=== PATIENT | male | born 1965 | race Caucasian/White ===

== ENCOUNTER 2017-10-15 15:01 | Emergency (ER) | payer OTHER ==
--- NOTE | 2017-10-15 16:28 | UC ---
Skin Complaint HPI - HPI Summary HPI Summary: 51-year-old male presents with onset of myalgias especially to bilateral shoulders and right hip, fatigue, night sweats one week ago. States about 3 days later developed circular rash to his abdomen and has since developed 2 more on his back and right arm. No known tick bite however states he had a tick bite about 1 year ago with similar symptoms and was treated with 2 weeks of doxycycline. - History of Current Complaint Chief Complaint: UCRash Time Seen by Provider: 10/15/17 16:12 Stated Complaint: SKIN COMPLAINT Hx Obtained From: Patient Onset/Duration: Gradual Onset, Lasting Days Pain Intensity: 0 Aggravating Factor(s): Nothing Alleviating Factor(s): Nothing - Allergy/Home Medications Allergies/Adverse Reactions: Allergies Allergy/AdvReac Type Severity Reaction Status Date / Time No Known Allergies Allergy Verified 10/15/17 15:39 Review of Systems Constitutional: Fatigue, Other - Night sweats Skin: Rash Respiratory: Negative Cardiovascular: Negative Gastrointestinal: Negative Musculoskeletal: Arthralgia Is Patient Immunocompromised?: No All Other Systems Reviewed And Are Negative: Yes PMH/Surg Hx/FS Hx/Imm Hx - Additional Past Medical History Additional PMH: Denies significant PMH - Surgical History Surgical History: Yes Surgery Procedure, Year, and Place: right knee patella - Family History Family History: Noncontributory - Social History Occupation: Employed Full-time Lives: With Family Alcohol Use: Daily Alcohol Amount: 2 drinks Substance Use Type: None Smoking Status (MU): Heavy Every Day Tobacco Smoker Physical Exam Triage Information Reviewed: Yes Appearance: Well-Appearing, No Pain Distress, Well-Nourished Vital Signs: Initial Vital Signs Temp 98.4 F 10/15/17 15:33 Pulse 72 10/15/17 15:33 Resp 18 10/15/17 15:33 BP 153/100 10/15/17 15:33 Pulse Ox 100 10/15/17 15:33 Eyes: Positive: Conjunctiva Clear. Negative: Discharge Neck: Positive: Supple, Nontender, No Lymphadenopathy Respiratory: Positive: Lungs clear, Normal breath sounds, No respiratory distress Cardiovascular: Positive: RRR, No Murmur Neurological: Positive: Alert Skin: Positive: Other - Circular non-pruritic erythematous rash 6 cm in diameter with dark red center to RU abdomen. Oval non-pruritic rash approximately 4 cm left posterior shoulder. Small non-pruritic 2.3 cm rash to right forearm. Course/Dx - Course Course Of Treatment: 51 year old male presents with 1 week history of flu-like illness, myalgias, and rash. No known tick bite but does have significant exposure. Will test for Lyme and begin treatment with doxycycline 100 BID x 14 days. - Diagnoses Provider Diagnoses: Lyme disease Discharge - Sign-Out/Discharge Documenting (check all that apply): Patient Departure All imaging exams completed and their final reports reviewed: No Studies - Discharge Plan Condition: Stable Disposition: HOME Prescriptions: Doxycycline Hyclate 100 mg PO BID #28 tablet Patient Education Materials: Lyme Disease (ED) Referrals: No Primary Care Phys,NOPCP [Primary Care Provider] - [facility] [Outside] Additional Instructions: Your symptoms are suspicious for Lyme disease. We will test you today and begin treatment. Start doxycycline 1 tablet twice a day for 14 days. Please be aware that he needs take precautions when he was in the sun while taking this medication and she will burn more easily. He should use a sunscreen with SPF of 30 or greater , wear long sleeves, and to have whenever you are outdoors. I have given you the phone number for the physician referral line. You can use this number to help you establish with a primary care provider. Your blood pressure was elevated at the clinic today. You should follow up with primary care within the next 2 weeks to have this rechecked. - Billing Disposition and Condition Condition: STABLE Disposition: Home
[2017-10-15 17:18] VITALS: BP 164/100
== END 2017-10-15 17:15 | disposition home or self-care (01) ==
LOC: UCEAST 15:01
DX: A69.20 Lyme disease, unspecified (principal); F17.210 Nicotine dependence, cigarettes, uncomplicated
CPT/HCPCS: 86618; 99212; G0463

== ENCOUNTER 2018-12-15 08:54 | Emergency (ER) | payer OTHER ==
[2018-12-15 09:10] VITALS: BP 138/72
--- NOTE | 2018-12-15 09:26 | UC ---
Skin Complaint HPI - HPI Summary HPI Summary: 53-year-old male comes in with a chief complaint of rash chills feeling ill for about a day and a half. Patient had a tick bite on December 09, 2018 on his right upper inner thigh which he removed. He does have some redness in the area but there is no bull's-eye rash. Patient reports she's had Lyme disease to other times and that's what he believes this is. Patient has a generalized scattered patchy erythematous rash. No difficulty breathing or swallowing. - History of Current Complaint Chief Complaint: UCGeneralIllness Time Seen by Provider: 12/15/18 09:13 Stated Complaint: TICK BITE Pain Intensity: 1 - Allergy/Home Medications Allergies/Adverse Reactions: Allergies Allergy/AdvReac Type Severity Reaction Status Date / Time No Known Allergies Allergy Verified 12/15/18 09:03 Home Medications: Home Medications Ibuprofen TAB* [Motrin TAB* 600 MG] 600 mg PO ONCE 12/15/18 [History Confirmed 12/15/18] PMH/Surg Hx/FS Hx/Imm Hx Previously Healthy: Yes - lyme x 2 - Surgical History Surgical History: Yes Surgery Procedure, Year, and Place: right knee patella and then removal of hardware - Family History Known Family History: Positive: Non-Contributory Family History: Noncontributory - Social History Alcohol Use: Occasionally Alcohol Amount: 2 drinks Substance Use Type: None Smoking Status (MU): Heavy Every Day Tobacco Smoker Amount Used/How Often: 1/2 PPD Review of Systems All Other Systems Reviewed And Are Negative: Yes Constitutional: Positive: Chills, Other - see hpi Skin: Positive: Other - see hpi Eyes: Positive: Negative ENT: Positive: Negative Respiratory: Positive: Negative Cardiovascular: Positive: Negative Gastrointestinal: Positive: Negative Motor: Positive: Negative Neurovascular: Positive: Negative Musculoskeletal: Positive: Negative Neurological: Positive: Negative Psychological: Positive: Negative Is Patient Immunocompromised?: No Physical Exam Triage Information Reviewed: Yes Appearance: Well-Appearing, No Pain Distress, Well-Nourished Vital Signs: Initial Vital Signs Temp 99.3 F 12/15/18 09:04 Pulse 80 12/15/18 09:04 Resp 18 12/15/18 09:04 BP 138/72 12/15/18 09:04 Pulse Ox 98 12/15/18 09:04 Vital Signs Reviewed: Yes Eye Exam: Normal Eyes: Positive: Conjunctiva Clear Neck: Positive: Supple Respiratory: Positive: Lungs clear, Normal breath sounds, No respiratory distress Cardiovascular: Positive: RRR Musculoskeletal: Positive: Strength Intact, ROM Intact Neurological: Positive: Alert, Muscle Tone Normal Psychological: Positive: Age Appropriate Behavior Skin: Positive: Other - Diffuse patchy erythematous blanching rash on neck chest and arms. Of the right upper inner thigh there is a 2 cm area of erythema at the location of the tick bite. It is not in a bull's-eye distribution. Course/Dx - Course Course Of Treatment: The cause of the symptoms is not 100% clear at this time however we'll treat for Lyme disease with doxycycline 100 mg by mouth twice a day. CRP CBC CMP and Lyme blood work is pending. Patient will follow-up with infectious disease. We discussed that if he did not improve her got worse he needs reevaluation in the emergency department. - Diagnoses Provider Diagnosis: Tick bite of right thigh, Rash Discharge ED - Sign-Out/Discharge Documenting (check all that apply): Patient Departure All imaging exams completed and their final reports reviewed: No Studies - Discharge Plan Condition: Stable Disposition: HOME Prescriptions: DOXYcycline CAP(*) [DOXYcycline 100MG CAP(*)] 100 mg PO BID #28 cap Patient Education Materials: Tick Bite (ED), Lyme Disease (ED), Acute Rash (ED) Referrals: Matilda NOVA,Juan Castanon [Medical Doctor] - Additional Instructions: FOLLOW UP WITH DR WERNER, INFECTIOUS DISEASE. GO TO THE EMERGENCY DEPARTMENT IF WORSE; FEVER, YOU FEEL ILL, SIGNS OF MENINGITIS, SHORTNESS OF BREATH OR ANY QUESTIONS OR CONCERNS. - Billing Disposition and Condition Condition: STABLE Disposition: Home
[2018-12-15 13:33] LABS: ABS Eosinophils 0.2 10^3/ul (0-0.6); ABS Lymphocytes 0.4 10^3/ul (1.0-4.8); ABS Monocytes 0.6 10^3/ul (0-0.8); ABS Neutrophils 3.5 10^3/ul (1.5-7.7); Eosinophil % 3.4 %; Hematocrit 43 % (42-52); Hemoglobin 14.9 g/dL (14.0-18.0); Lymphocyte % 8.9 %; Mean Corpuscular HGB Conc 35 g/dL (31-36); Mean Corpuscular Hemoglobin 33 pg (27-31); Mean Corpuscular Volume 95 fL (80-94); Mean Platelet Volume 9.6 fL (7.4-10.4); Nucleated Red Blood Cells % 0.1; Platelet Count 187 10^3/uL (150-450); Red Blood Count 4.51 10^6 /uL (4.18-5.48); Red Cell Distribution Width 13 % (10-15); White Blood Count 4.6 10^3/uL (3.5-10.8)
[2018-12-15 13:46] LABS: Albumin 4.2 g/dL (3.2-5.2); Potassium 4.3 mmol/L (3.5-5.0); Total Bilirubin 0.4 mg/dL (0.2-1.0)
[2018-12-15 13:52] LABS: Albumin/Globulin Ratio 2.1 (1-3); BUN/Creatinine Ratio 14.7 (8-20); C Reactive Protein 30.33 mg/L (<8.01); EGFR African American 99.6 (>60); EGFR Non-African American 82.3 (>60); Total Protein 6.2 g/dL (6.4-8.9)
--- NOTE | 2018-12-16 09:01 | UC ---
- Progress Note Progress Note: CBC AND CMP GROSSLY UNREMARKABLE. CRP ELEVATED. THIS IS NONSPECIFIC AND LIKELY DUE TO HIS ACUTE CONDITION. FOLLOW-UP ADVISED. NO CHANGE IN MANAGEMENT. Course/Dx - Diagnoses Provider Diagnoses: Tick bite of right thigh, Rash Discharge ED - Sign-Out/Discharge Documenting (check all that apply): Post-Discharge Follow Up All imaging exams completed and their final reports reviewed: No Studies - Discharge Plan Condition: Stable Disposition: HOME Prescriptions: DOXYcycline CAP(*) [DOXYcycline 100MG CAP(*)] 100 mg PO BID #28 cap Patient Education Materials: Lyme Disease (ED), Tick Bite (ED), Acute Rash (ED) Referrals: Matilda NOVA,Juan Castanon [Medical Doctor] - Additional Instructions: FOLLOW UP WITH DR WERNER, INFECTIOUS DISEASE. GO TO THE EMERGENCY DEPARTMENT IF WORSE; FEVER, YOU FEEL ILL, SIGNS OF MENINGITIS, SHORTNESS OF BREATH OR ANY QUESTIONS OR CONCERNS. - Billing Disposition and Condition Condition: STABLE Disposition: Home
--- NOTE | 2018-12-20 09:30 | UC ---
- Progress Note Progress Note: PLEASE CALL PATIENT. INFORM THAT LYME SEROLOGY CONSISTENT WITH RECENT INFECTION. CONTINUE DOXYCYCLINE PRESCRIBED. BE SURE TO FOLLOW UP WITH DR. WERNER ADVISED. Course/Dx - Diagnoses Provider Diagnoses: Tick bite of right thigh, Rash Discharge ED - Sign-Out/Discharge Documenting (check all that apply): Post-Discharge Follow Up All imaging exams completed and their final reports reviewed: No Studies - Discharge Plan Condition: Stable Disposition: HOME Prescriptions: DOXYcycline CAP(*) [DOXYcycline 100MG CAP(*)] 100 mg PO BID #28 cap Patient Education Materials: Lyme Disease (ED), Tick Bite (ED), Acute Rash (ED) Referrals: Matilda NOVA,Juan Castanon [Medical Doctor] - Additional Instructions: FOLLOW UP WITH DR WERNER, INFECTIOUS DISEASE. GO TO THE EMERGENCY DEPARTMENT IF WORSE; FEVER, YOU FEEL ILL, SIGNS OF MENINGITIS, SHORTNESS OF BREATH OR ANY QUESTIONS OR CONCERNS. - Billing Disposition and Condition Condition: STABLE Disposition: Home
== END 2018-12-15 09:30 | disposition home or self-care (01) ==
LOC: UCEAST 08:54
DX: S70.361A Insect bite (nonvenomous), right thigh, initial encounter (principal); F17.210 Nicotine dependence, cigarettes, uncomplicated; R21 Rash and other nonspecific skin eruption; W57.XXXA Bitten or stung by nonvenomous insect and other nonvenomous arthropods, initial encounter; Y92.9 Unspecified place or not applicable
CPT/HCPCS: 36415; 80053; 85025; 86140; 86617; 86618; 99212; G0463